=== PATIENT | female | born 1980 | race Caucasian/White ===

== ENCOUNTER 2017-10-23 09:59 | Emergency (ER) | payer SELFPAY ==
[~2017-10-23] VITALS: Ht 165.1 cm; Wt 59.0 kg
--- NOTE | 2017-10-23 10:20 | NUR ---
BIB SELF C/O DIZZINESS X1DAY, DENIES FALL, OR LOC, NAD NOTED, VSS, RESP EVEN AND UNLABORED, WAITING FOR MD FRED.
[2017-10-23] MEDS ORDERED: ACETAMINOPHEN ES 500 MG TABLET ONE (10:26)
[2017-10-23] MEDS ORDERED: IBUPROFEN 400 MG TABLET ONE (10:50)
[2017-10-23] MEDS ORDERED: ACETAMINOPHEN ES 500 MG TABLET PO ONE (11:00)
[2017-10-23] MEDS ORDERED: IBUPROFEN 400 MG TABLET PO ONE (11:00)
[2017-10-23 11:08] VITALS: BP 110/70
--- NOTE | 2017-10-23 11:09 | NUR ---
Patient discharged to home in stable condition. Written and verbal after care instructions given. Patient verbalizes understanding of instruction.
== END 2017-10-23 11:09 | disposition home or self-care (01) ==
LOC: ER 10:00
DX: F15.10 Other stimulant abuse, uncomplicated (principal); L03.114 Cellulitis of left upper limb; F17.200 Nicotine dependence, unspecified, uncomplicated; Z59.0 Homelessness
CPT/HCPCS: 99283; A4606; Z7610

== ENCOUNTER 2018-12-03 18:19 | Inpatient (IN) | payer OTHER ==
[~2018-12-03] VITALS: Ht 165.1 cm; Wt 67.6 kg
--- NOTE | 2018-12-03 21:22 | NUR ---
C/O WORSENING R LEG PAIN AND SWELLING SINCE NOV 07, 2018. STATES PAIN LEVEL OF 7/10 AND IS MOANING AND CRYING OUT. PT IS AOX4, SLIGHTLY TACHYCARDIC, RR EVEN AND UNLABORED. SKIN WARM TO TOUCH, DRY, INTACT. DENIES SOB, DIZZINESS, WEAKNESS. READY FOR EVAL.
[2018-12-03] MEDS ORDERED: ONDANSETRON HCL/PF 4 MG/2 ML VIAL ONE ×2 (21:46→22:30)
[2018-12-03] MEDS ORDERED: oxyCODONE/APAP (5/325 MG) 1 UDTAB TABLET ONE (21:55)
[2018-12-03] MEDS ORDERED: ONDANSETRON HCL/PF 4 MG/2 ML VIAL IVP ONE (22:00)
[2018-12-03] MEDS ORDERED: oxyCODONE/APAP (5/325 MG) 1 UDTAB TABLET PO ONE (22:00)
[2018-12-03] MEDS ORDERED: MORPHINE SULFATE INJ 2 MG/ML DISP.SYRIN IV ONE (22:00)
[2018-12-03] MEDS ORDERED: IV NS 0.9% 1,000 ML BAG IV ONE ×2 (22:00→23:30)
--- NOTE | 2018-12-03 22:24 | NUR ---
REMANUFACTURING TECHNICIAN AT BEDSIDE
[2018-12-03 22:27] LABS: BASOPHILS # (AUTO) 0.1 /CMM (0.0-0.2); BASOPHILS % (AUTO) 0.3 % (0.0-2.0); EOSINOPHILS % (AUTO) 0.3 % (0.0-6.0); HEMATOCRIT 25 % (33-45); HEMOGLOBIN 8.1 g/dL (11.5-14.8); LYMPHOCYTES # (AUTO) 1.2 /CMM (0.8-4.8); LYMPHOCYTES % (AUTO) 6.7 % (20.0-44.0); MEAN CORPUSCULAR HGB CONC 33 g/dl (31.0-36.0); MEAN CORPUSCULAR VOLUME 85 fL (82-100); MONOCYTES # (AUTO) 0.6 /CMM (0.1-1.30); MONOCYTES % (AUTO) 3.3 % (2.0-12.0); NEUTROPHILS # (AUTO) 15.6 /CMM (1.8-8.9); NEUTROPHILS % (AUTO) 89.4 % (43.0-81.0); PLATELET COUNT (AUTO) 726 /CMM (150-450); RED BLOOD CELL COUNT(AUTO) 2.94 MIL/uL (4.0-5.2); WHITE BLOOD COUNT (AUTO) 17.4 K/uL (4.3-11.0)
[2018-12-03] MEDS ORDERED: HYDROMORPHONE INJ 2 MG/ML DISP.SYRIN ONE (22:30)
[2018-12-03] MEDS ORDERED: HYDROMORPHONE INJ 2 MG/ML DISP.SYRIN IM ONE (22:30)
[2018-12-03] MEDS ORDERED: ONDANSETRON HCL/PF 4 MG/2 ML VIAL IM ONE (22:30)
[2018-12-03 22:42] LABS: CALCIUM, SERUM 8.9 mg/dL (8.5-10.1); CREATININE 3.1 mg/dL (0.6-1.3); POTASSIUM 4.7 mmol/L (3.5-5.1)
[2018-12-03 23:08] LABS: ALANINE AMINOTRANSFERASE 17 U/L (12-78); ALBUMIN 1.6 g/dL (3.4-5.0); ALKALINE PHOSPHATASE 122 U/L (46-116); ASPARTATE AMINOTRANSFERASE 20 U/L (15-37); BILIRUBIN,DIRECT 0.3 mg/dL (0.0-0.2); BILIRUBIN,TOTAL 0.5 mg/dL (0.2-1.0); TOTAL PROTEIN, SERUM 8.9 g/dL (6.4-8.2)
--- NOTE | 2018-12-03 23:08 | NUR ---
ANTIQUE FINISHER AT BEDSIDE
--- NOTE | 2018-12-03 23:12 | NUR ---
BOYFRIEND AT BEDSIDE
[2018-12-03] MEDS ORDERED: PIPERACILLIN /TAZOBACTAM 3.375 G in IV D5W 50 ML IV ONE (23:30)
[2018-12-03] MEDS ORDERED: VANCOMYCIN 1 GM in IV D5W 250 ML IV ONE (23:30)
--- NOTE | 2018-12-03 23:37 | NUR ---
URINE OBTAINED AND SENT TO LAB. REPORT GIVEN TO MARILOU BISHOP FOR RIAZ.
[2018-12-03 23:44] LABS: APPEARANCE,URINE Cloudy (CLEAR); BILIRUBIN,URINE MODERATE (NEGATIVE); BLOOD, URINE Trace-lysed Ery/uL (NEGATIVE); COLOR,URINE Dark (YELLOW); KETONES,URINE Trace (NEGATIVE); LEUKOCYTE ESTERASE ,URINE Large (NEGATIVE); NITRITE, URINE Negative (NEGATIVE); PROTEIN,URINE 100 mg/dl (NEGATIVE); UGLUCOSE Negative (NEGATIVE)
[2018-12-03] MEDS ORDERED: VANCOMYCIN 1 GM VIAL ONE (23:58)
[2018-12-03] MEDS ORDERED: PIPERACILLIN /TAZOBACTAM 3.375 G VIAL IV ONE (23:58)
[2018-12-04] VITALS (7 sets, daily range): BP systolic 96–107; BP diastolic 36–50
[2018-12-04 00:03] LABS: SQUAMOUS EPITHELIAL CELL,UR Moderate /HPF (None Seen); WBC,URINE TOO NUMEROUS TO COUN /HPF (0-3)
[2018-12-04 00:04] LABS: BACTERIA,URINE Many /HPF (None Seen)
[2018-12-04] MEDS ORDERED: MAGNESIUM HYDROXIDE 30 ML UDC PO PRN (00:30)
[2018-12-04] MEDS ORDERED: ONDANSETRON HCL/PF 4 MG/2 ML VIAL IVP PRN (00:30)
[2018-12-04] MEDS ORDERED: MAG HYDROX/AL HYDROX/SIMETH 30 ML UDC PO PRN (00:30)
[2018-12-04] MEDS ORDERED: Z GUARD REMEDY 2 OZ OINT TP PRN (00:30)
--- NOTE | 2018-12-04 01:30 | NUR ---
REPORT GIVEN TO YOHANA ZAMARRIPA
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
[2018-12-04] MEDS ORDERED: RIVA10TA PO (02:30)
[2018-12-04] MEDS ORDERED: IBUP-1955 PO (02:35)
[2018-12-04] MEDS: IV NS 0.9% 1,000 ML IV PRN ×2 (04:00→23:43)
--- NOTE | 2018-12-04 06:41 | NUR ---
307-1 TELE/RN NOTES PATIENT SLEPT INTERMITENT;Y, ON TELE READING ST 105, ALERT, ORIENTED X3, VERBALZIED NEEDS AT ALL TIMES, MONITORED FOR PAIN AND RELIEF. CALL LIGHTS WITHIN REACH, BED LOCKED WILL ENDORSE TO AM RN FOR RIAZ. RESPIRATIONS EVEN AND UNLABORED.
[2018-12-04] MEDS ORDERED: FEE PK DOSING 1 MIN EA MC ONE (07:05)
--- NOTE | 2018-12-04 07:45 | NUR ---
MEDICAL STAFF SERVICES COORDINATOR OPENING NOTE PATIENT RESTING COMFORTABLY AT THIS TIME. NO FACIAL GRIMACING NOTED FOR PAIN. NO SOB OR DISTRESS NOTED ON ROOM AIR TOLERATING WELL. IV ON RIGHT HAND INTACT AND PATENT NO REDNESS OR SWELLING NOTED ON IV FLUIDS AT THIS TIME. ABLE TO COMMUNICATE NEEDS. CALL LIGHT WITHIN REACH. WILL CONTINUE CARE
[2018-12-04] MEDS: PIPERACILLIN /TAZOBACTAM 2.25 G in IV D5W 50 ML IV SCH ×4 (08:47→23:39)
--- NOTE | 2018-12-04 10:45 | NUR ---
SPINE SPECIALIST NOTE AT THIS TIME PATIENT REFUSING FOR SECONDARY IV LINE FOR ANTIBIOTIC ADMINISTRATIN. INFORMED [facility]
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
--- NOTE | 2018-12-04 13:00 | NUR ---
TAX ASSESSOR NOTE NOTICED PATIENT WAS VERY DROWSY, INFORMED MD THAT PATIENT HAS BEEN LIKE THAT ALL MORNING. SEARCHED PATIENT'S BELONGINGS AT BEDSIDE THOROUGHLY AND FOUND 2 PIPES, A SMALL BAG OF UNKNOWN SUBSTANCE, TWO INSULIN SYRINGES, AND TWO PEN-LIKE TUBES. ALL CONTRABAND HAS BEEN CONFISCATED FROM PATIENT AND PLACED IN [facility]. INFORMED CHARGE NURSE IN REGARDS TO CONTRABAND.
[2018-12-04 14:39] LABS: BASOPHILS % (AUTO) 0.1 % (0.0-2.0); EOSINOPHILS % (AUTO) 0.2 % (0.0-6.0); HEMATOCRIT 24 % (33-45); HEMOGLOBIN 7.4 g/dL (11.5-14.8); LYMPHOCYTES # (AUTO) 0.4 /CMM (0.8-4.8); LYMPHOCYTES % (AUTO) 2.3 % (20.0-44.0); MEAN CORPUSCULAR HGB CONC 31 g/dl (31.0-36.0); MEAN CORPUSCULAR VOLUME 85 fL (82-100); MONOCYTES # (AUTO) 0.4 /CMM (0.1-1.30); MONOCYTES % (AUTO) 2.2 % (2.0-12.0); NEUTROPHILS # (AUTO) 16.9 /CMM (1.8-8.9); NEUTROPHILS % (AUTO) 95.2 % (43.0-81.0); PLATELET COUNT (AUTO) 664 /CMM (150-450); RED BLOOD CELL COUNT(AUTO) 2.75 MIL/uL (4.0-5.2); WHITE BLOOD COUNT (AUTO) 17.7 K/uL (4.3-11.0)
[2018-12-04 14:43] LABS: CALCIUM, SERUM 8.3 mg/dL (8.5-10.1)
[2018-12-04 15:20] LABS: BAND % (MANUAL) 10 % (0.0-5.0); LYMPHOCYTES % (MANUAL) 10 % (16-48); MONOCYTES % (MANUAL) 4 % (0-11.0); NEUTROPHILS % (MANUAL) 76 (42-76)
[2018-12-04] MEDS ORDERED: IV NS 0.9% 1,000 ML IV PRN (16:30)
--- NOTE | 2018-12-04 18:08 | NUR ---
Patient states she has been homeless since March 2017. Prior to being homeless, she had an apartment in [place]. She also had a baby who is adopted by Mercy Stewart, who is also her emergency contact. States she is originally from [place], [place] and moved to [facility] in June 2016. Patient states her family are in [place] and are aware of pt's hospitalization. She has a boyfriend named Juan. Pt. denies current drug use and states she last used in October prior to being hospitalized at [facility]. She receives food stamps worth $200 per month. SW asked patient if she would like [facility] program placement and resources. Patient stated, " [facility] the [facility] before and they are scary." SW to meet with her again prior to discharge and once medically cleared to discuss resources and referrals. Addendum: 12/04/18 at 1809 by HUGO LUNDBERG RN Amended: Links added.
--- NOTE | 2018-12-04 18:39 | NUR ---
DESK REPORTER CLOSING NOTE PATIENT IN BED AT THIS TIME YELLING, WHEN ASKING PATIENT IF THERE IS SOMETHING WRONG PATIENT REPLIES " NO IM OKAY" AND CONTINUES TO YELL AND SCREAM. CALL LIGHT WITHIN REACH AT ALL TIMES. SAFETY MEASURES IMPLEMENTED. ALL DUE MEDICATIONS GIVEN ORDERED. ALL NEEDS MET. URINE TO BE COLLECTED FOR TEST. NO FACIAL GRIMACING NOTED FOR PAIN. NO SOB OR DISTRESS NOTED ON ROOM AIR. WILL ENDORSE TO CERTIFIED MASTER SAFECRACKER NURSE FOR RIAZ Addendum: 12/04/18 at 1848 by KAROLYN MCCANN RN TELE [id number]. AWARE
--- NOTE | 2018-12-04 19:30 | NUR ---
RECEIVED PATIENT IN BED ASLEEP, EASILY AROUSABLE. AO X 3, ABLE TO MAKE NEEDS KNOWN; CRIES ON AND OFF; REASSURANCE GIVEN. NO ACUTE DISTRESS NOTED. DENIES ANY PAIN AT THIS TIME. SINUS TACH HR 135. IV SITE PATENT, INTACT; IVF INFUSING ORDERED. ON LOW BED WITH BILATERAL UPPER SIDE RAILS UP. CALL [place] WITHIN EASY REACH. WILL CONTINUE TO MONITOR.
[2018-12-04] MEDS: ACETAMINOPHEN 325 MG TABLET PO PRN (20:15)
--- NOTE | 2018-12-04 20:15 | NUR ---
TEMP 103.2 RELAYED TO [facility]. BLOOD CULTURE X 2 ALREADY DONE. ON ZOSYN. [facility] SP[facility] ORDERED TO GIVE ORDERED NS BOLUS; FOLLOW UP ON VANCO IV; ADMINISTER TYLENOL; NOTED AND CARRIED OUT. COOLING MEASURES ALSO GIVEN. WILL CONTINUE TO MONITOR.
[2018-12-04] MEDS ORDERED: ENOXAPARIN SODIUM 40 MG/0.4 ML DISP.SYRIN SQ ONE (22:00)
[2018-12-05] VITALS (11 sets, daily range): BP systolic 98–112; BP diastolic 51–60
[2018-12-05] MEDS ORDERED: VANCOMYCIN 0.75 GM in IV D5W 250 ML IV SCH ×2
--- NOTE | 2018-12-05 06:00 | NUR ---
PATIENT ASLEEP, EASILY AROUSABLE. RESPIRATONS EVEN. NO SIGNS OF PAIN NOTED. DUE MEDS GIVEN WITH NO ASE NOTED. IVF INFUSING ORDERED. NO SIGNS OF BLEEDING NOTED. NEEDS ATTENDED. ENCOURAGED TO TURN AND REPOSITION Q 2 HOURS. KEPT CLEAN, DRY, AND COMFORTABLE. SAFETY PRECAUTIONS AND COMFORT MEASURES IN PLACE. WILL GIVE REPORT TO DAY SHIFT FOR CONTINUITY OF CARE.
[2018-12-05] MEDS: PIPERACILLIN /TAZOBACTAM 2.25 G in IV D5W 50 ML IV SCH (06:15)
[2018-12-05 06:34] LABS: BASOPHILS % (AUTO) 0.1 % (0.0-2.0); EOSINOPHILS % (AUTO) 0.1 % (0.0-6.0); HEMATOCRIT 21 % (33-45); LYMPHOCYTES # (AUTO) 0.8 /CMM (0.8-4.8); MEAN CORPUSCULAR HGB CONC 32 g/dl (31.0-36.0); MEAN CORPUSCULAR VOLUME 85 fL (82-100); MONOCYTES # (AUTO) 0.7 /CMM (0.1-1.30); MONOCYTES % (AUTO) 3.9 % (2.0-12.0); NEUTROPHILS # (AUTO) 15.4 /CMM (1.8-8.9); NEUTROPHILS % (AUTO) 90.9 % (43.0-81.0); PLATELET COUNT (AUTO) 621 /CMM (150-450); RED BLOOD CELL COUNT(AUTO) 2.42 MIL/uL (4.0-5.2); WHITE BLOOD COUNT (AUTO) 16.9 K/uL (4.3-11.0)
[2018-12-05 06:55] LABS: HEMOGLOBIN 6.5 g/dL (11.5-14.8)
--- NOTE | 2018-12-05 06:55 | NUR ---
PROVIDER CELLOPHANE BATH MIXER PAGED FOR CRITICAL LAB REPORT; WAITING FOR CALL BACK. MAY ENDORSE TO DAY SHIFT.
[2018-12-05 06:58] LABS: CALCIUM, SERUM 8.1 mg/dL (8.5-10.1); CARBON DIOXIDE 21 mmol/L (21-32); CHLORIDE 104 mmol/L (98-107); CREATININE 1.1 mg/dL (0.6-1.3); GLUCOSE 117 mg/dL (74-106); PHOSPHORUS 4.9 mg/dL (2.5-4.9); POTASSIUM 3.1 mmol/L (3.5-5.1); SODIUM SERUM 135 mmol/L (136-145); UREA NITROGEN, BLOOD 39 mg/dL (7-18)
[2018-12-05 07:04] LABS: CHOLESTEROL 53 mg/dL (<200); LDL 41 mg/dL (0-99); THYROID STIMULATING HORMONE 0.695 uIU/mL (0.358-3.74); TRIGLYCERIDES 95 mg/dL (30-150)
[2018-12-05 07:14] LABS: HDL CHOLESTEROL < 10 mg/dL (40-60)
--- NOTE | 2018-12-05 08:00 | NUR ---
RN NOTES PATIENT IN BED RESTING NO SOB OR ACUTE DISTRESS NOTED. PATIENT ALERT, ORIENTED X3 APPEARS WEAK. DR. PIRES MADE AWARE OF THE H/H: .04/07 ORDERS TO REPEAT CBC AND TYPE AND SCREEN ORDERS NOTED AND CARRIED OUT.
[2018-12-05 08:48] LABS: LYMPHOCYTES % (MANUAL) 6 % (16-48); MONOCYTES % (MANUAL) 7 % (0-11.0); NEUTROPHILS % (MANUAL) 87 (42-76)
--- NOTE | 2018-12-05 09:00 | NUR ---
RN NOTES STANDING ORDERS TO GIVE 1 UNIT OF RBC IF HGB BELOW 7.0 NOTED AND CARRIED.
[2018-12-05] MEDS: ACETAMINOPHEN 325 MG TABLET PO PRN (10:01)
[2018-12-05] MEDS ORDERED: POTASSIUM CHLORIDE 20 MEQ TAB.PRT.SR PO ONE (11:00)
[2018-12-05 11:12] LABS: BASOPHILS % (AUTO) 0.2 % (0.0-2.0); EOSINOPHILS % (AUTO) 0.2 % (0.0-6.0); LYMPHOCYTES # (AUTO) 0.9 /CMM (0.8-4.8); LYMPHOCYTES % (AUTO) 5.7 % (20.0-44.0); MEAN CORPUSCULAR HGB CONC 33 g/dl (31.0-36.0); MEAN CORPUSCULAR VOLUME 84 fL (82-100); MONOCYTES # (AUTO) 0.7 /CMM (0.1-1.30); NEUTROPHILS # (AUTO) 15.1 /CMM (1.8-8.9); NEUTROPHILS % (AUTO) 89.9 % (43.0-81.0); PLATELET COUNT (AUTO) 616 /CMM (150-450); RED BLOOD CELL COUNT(AUTO) 2.32 MIL/uL (4.0-5.2); WHITE BLOOD COUNT (AUTO) 16.8 K/uL (4.3-11.0)
--- NOTE | 2018-12-05 11:23 | NUR ---
WOUND CARE CONSULT: PT PRESENTS WITH RT HEEL INTACT DEEP TISSUE INJURY AND SACRAL STAGE 2 ULCER, PRESENT ON ADMISSION. RECOMMENDATIONS MADE FOR SKIN PROTECTION AND WOUND CARE. DISCUSSED WITH NURSING STAFF. WILL SEE PRN. ISOFLEX LOW AIRLOSS BED TO BE PLACED. WILL SEE PRN. IN AGREEMENT WITH PLAN OF CARE . Addendum: 12/05/18 at 1125 by KATARINA CORNELIUS WNDNU Amended: Links added.
[2018-12-05 11:25] LABS: HEMATOCRIT 20 % (33-45); HEMOGLOBIN 6.4 g/dL (11.5-14.8)
[2018-12-05] MEDS ORDERED: HYDROGEL DRESSING 90 GM TUBE TP PRN (11:30)
[2018-12-05] MEDS: PIPERACILLIN /TAZOBACTAM 3.375 G in IV D5W 50 ML IV SCH ×2 (12:15→19:18)
[2018-12-05 12:18] LABS: LYMPHOCYTES % (MANUAL) 7 % (16-48); MONOCYTES % (MANUAL) 1 % (0-11.0); NEUTROPHILS % (MANUAL) 92 (42-76)
[2018-12-05] MEDS ORDERED: K PHOS NEUTRAL 250 MG TABLET PO ONE (12:30)
[2018-12-05] MEDS: VANCOMYCIN 0.75 GM in IV D5W 250 ML IV SCH (13:21)
[2018-12-05] MEDS: HYDROGEL DRESSING 90 GM TUBE TP SCH (13:21)
--- NOTE | 2018-12-05 16:34 | NUR ---
RN NOTES PATIENT STARTED ON BLOOD TRANSFUSION IN STABLE CONDITION TOLERATING WELL WILL CONTINUE TO MONITOR.
[2018-12-05] MEDS: LACTOBACILLUS RHAMNOSUS GG 1 EACH CAP.SPRINK PO SCH (17:36)
--- NOTE | 2018-12-05 18:32 | NUR ---
RN NOTES PATIENT IN BED RESTING ALERT, ORIENTED X3 NO SOB OR ACUTE DISTRESS NOTED. PATIENT ALERT, ORIENTED X3. PERIPHERAL IV ON RIGHT FOREARM INTACT PATENT. PATIENT CURRENTLY RECEIVING BLOOD TRANSFUSION TOLERATING WELL NO REACTION NOTED. NO ACUTE CHANGES NOTED. WILL ENDORSE TO PM SHIFT RIAZ.
[2018-12-05] MEDS: IV NS 0.9% 1,000 ML IV PRN (19:18)
--- NOTE | 2018-12-05 19:30 | NUR ---
RN OPENING NOTES PT RECEIVED WITH ONGOING BLOOD TRANSFUSION. LETHARGIC BUT OPENS EYES TO NAME. ON ROOM AIR, BREATHING EVEN AND UNLABORED. ON TELE OBSERVATION SHOWING SR 94. IV TO RFA PATENT AND INTACT. IN NO ACUTE DISTRESS. NO S/S OF SOB OR PAIN AT THIS TIME. BED IN LOW/LOCKED POSITION WITH CALL LIGHT IN REACH, SIDE RAILS UP X2. BLUE ELEVATED. WILL CONTINUE TO MONITOR CLOSELY
[2018-12-05] MEDS: ENOXAPARIN SODIUM 40 MG/0.4 ML DISP.SYRIN SQ SCH (21:08)
[2018-12-06] VITALS (7 sets, daily range): BP systolic 96–107; BP diastolic 55–65
[2018-12-06] MEDS: PIPERACILLIN /TAZOBACTAM 3.375 G in IV D5W 50 ML IV SCH ×3 (00:19→11:00)
[2018-12-06] MEDS: ACETAMINOPHEN 325 MG TABLET PO PRN ×2 (00:24→17:38)
--- NOTE | 2018-12-06 00:39 | NUR ---
TELE/RN NOTES PT C/O RLE PAIN, BP 96/61, HR 86. ADMINISTERED PRN TYLENOL FOR NOW. WITH POOR PO INTAKE, BUT ABLE TO ENCOURAGE 2 CUPS OF JELLO AND 1 APPLE JUICE. TOLERATED WELL.
[2018-12-06] MEDS: VANCOMYCIN 0.75 GM in IV D5W 250 ML IV SCH ×2 (00:58→12:34)
--- NOTE | 2018-12-06 04:44 | NUR ---
RN NOTES PT REFUSED TURNING/REPOSITIONING THROUGHOUT SHIFT DESPITE MULTIPLE ATTEMPTS TO ASSIST WITH TURNING AND EDUCATION OF RISKS/BENEFITS. STATES THE PILLOW "IS TOO UNCOMFORTABLE" AND BEGINS TO MOAN AND CRY. ABLE TO APPLY MEPILEX FOR PROTECTION. VERBALIZES UNDERSTANDING OF SACRAL WOUND AND POTENTIAL TO GET WORSE IF PT DOES NOT TURN Q2H. STILL REFUSING
[2018-12-06 06:38] LABS: BASOPHILS % (AUTO) 0.2 % (0.0-2.0); EOSINOPHILS % (AUTO) 0.5 % (0.0-6.0); HEMATOCRIT 22 % (33-45); HEMOGLOBIN 7.5 g/dL (11.5-14.8); LYMPHOCYTES # (AUTO) 1.4 /CMM (0.8-4.8); LYMPHOCYTES % (AUTO) 10.9 % (20.0-44.0); MEAN CORPUSCULAR HGB CONC 34 g/dl (31.0-36.0); MEAN CORPUSCULAR VOLUME 85 fL (82-100); MONOCYTES # (AUTO) 0.6 /CMM (0.1-1.30); MONOCYTES % (AUTO) 4.7 % (2.0-12.0); NEUTROPHILS # (AUTO) 10.8 /CMM (1.8-8.9); NEUTROPHILS % (AUTO) 83.7 % (43.0-81.0); PLATELET COUNT (AUTO) 578 /CMM (150-450); RED BLOOD CELL COUNT(AUTO) 2.65 MIL/uL (4.0-5.2)
--- NOTE | 2018-12-06 06:38 | NUR ---
RN CLOSING NOTES PT ASLEEP, OPENS EYES TO NAME. A/OX3. ON ROOM AIR, BREATHING EVEN AND UNLABORED. DENIES SOB, NO C/O PAIN AT THIS TIME. LUE AND RLE ELEVATED ON PILLOWS AT ALL TIMES. PT AGREED TO REPOSITION X1 DURING SHIFT. MEPILEX MAINTAINED ON SACRUM. IV TO RIGHT HAND AND RFA PATENT AND INTACT RUNNING IVF ORDERED. ENCOURAGED PO INTAKE TOLERATED. ASPIRATION PRECAUTIONS IMPLEMENTED. HOB ELEVATED. BED REMAINS IN LOW/LOCKED POSITION WITH CALL LIGHT IN REACH AND UPPER SIDE RAILS IN PLACE. KEPT COMFORTABLE DURING SHIFT AND ALL NEEDS MET. WILL ENDORSE TO DAY SHIFT RN RIAZ. Addendum: 12/06/18 at 0643 by INDER RICHARDS RN REMAINS ON TELE MONITOR SHOWING [id number]
[2018-12-06 06:47] LABS: CALCIUM, SERUM 8.3 mg/dL (8.5-10.1); CREATININE 0.7 mg/dL (0.6-1.3); POTASSIUM 3.6 mmol/L (3.5-5.1)
--- NOTE | 2018-12-06 07:23 | NUR ---
SUPERVISOR LANDSCAPE OPENING NOTES PT WAS RECEIVED IN BED AT LOWEST AND LOCKED POSITION WITH SIDE RAILS UP X2, A/O X3, NO S/S OF PAIN OR DISTRESS NOTED, BREATHING EVEN AND UNLABORED ON RA, PT IS ON BED REST, IV SITE IS PATENT AND INTACT, SAFETY PRECAUTIONS IN PLACE, CALL LIGHT WITHIN REACH, WILL MONITOR ACCORDINGLY.
[2018-12-06] MEDS: LACTOBACILLUS RHAMNOSUS GG 1 EACH CAP.SPRINK PO SCH ×2 (08:45→16:21)
[2018-12-06] MEDS: HYDROGEL DRESSING 90 GM TUBE TP SCH (08:47)
[2018-12-06 08:57] LABS: BAND % (MANUAL) 6 % (0.0-5.0); EOSINOPHILS % (MANUAL) 1 % (0-4); LYMPHOCYTES % (MANUAL) 8 % (16-48); MONOCYTES % (MANUAL) 2 % (0-11.0); MYELOCYTES % 1 % (0-0); NEUTROPHILS % (MANUAL) 82 (42-76)
[2018-12-06] MEDS: HYDROCODONE/APAP 10/325MG 1 EA TABLET PO PRN ×2 (12:41→20:24)
--- NOTE | 2018-12-06 12:41 | NUR ---
RN NOTES NORCO 10/325 GIVEN AT THIS TIME DUE TO PATIENT COMPLAINING OF PAIN 8 OUT 10, WILL MONITOR ACCORDINGLY
[2018-12-06] MEDS: IV NS 0.9% 1,000 ML IV PRN (12:44)
[2018-12-06] MEDS: CEFTRIAXONE 1 G in IV D5W 50 ML IV SCH (14:09)
--- NOTE | 2018-12-06 17:36 | NUR ---
RN NOTES PT COMPLAINED OF RLE PAIN, BP NOTED TO BE 102/61, HR 99. WILL ADMINISTER PRN TYLENOL FOR NOW INSTEAD OF NORCO.
--- NOTE | 2018-12-06 18:29 | NUR ---
MS RN CLOSING NOTES PT IN BED AT LOWEST AND LOCKED POSITION WITH SIDE RAILS UP X2, A/O X3, RESTING COMFORTABLY IN BED, BREATHING EVEN AND UNLABORED ON RA, PT IS ON BED REST, IV SITE IS PATENT AND INTACT, SAFETY PRECAUTIONS IN PLACE, CALL LIGHT WITHIN REACH, ALL NEEDS ATTENDED TO, WILL ENDORSE TO NIGHT RN FOR RIAZ.
--- NOTE | 2018-12-06 20:00 | NUR ---
MS RN NOTES RECEIVED PATIENT AWAKE IN BED WITH NO DISTRESS NOTED. CALL LIGHT WITHIN REACH. PERIPHERAL LINE INTACT AND PATENT. NO C/O PAIN OR DISCOMFORT. BED IN LOW LOCK SETTING. ALL BELONGINGS KEPT NEAR BEDSIDE. WILL CONTINUE TO MONITOR.
[2018-12-06] MEDS: ENOXAPARIN SODIUM 40 MG/0.4 ML DISP.SYRIN SQ SCH (21:15)
[2018-12-07] MEDS: VANCOMYCIN 1 GM in IV D5W 250 ML IV SCH ×3 (00:03→23:29)
[2018-12-07] MEDS: HYDROCODONE/APAP 10/325MG 1 EA TABLET PO PRN ×4 (03:00→23:29)
[2018-12-07] MEDS: IV NS 0.9% 1,000 ML IV PRN ×2 (05:44→23:36)
--- NOTE | 2018-12-07 06:03 | NUR ---
MS RN CLOSING NOTES PATIENT ASLEEP IN BED WITH NO DISTRESS NOTED. CALL LIGHT WITHIN REACH. PERIPHERAL LINE INTACT AND PATENT. ALL DUE MEDS GIVEN ORDERED WITH NO ASE NOTED. BLE ELEVATED VIA PILLOWS. NO FURTHER C/O PAIN OR DISCOMFORT. BED IN LOW LOCK SETTING. ALL BELONGINGS KEPT NEAR BEDSIDE. WILL ENDORSE TO ONCOMING SHIFT.
[2018-12-07 06:12] LABS: BASOPHILS # (AUTO) 0.1 /CMM (0.0-0.2); BASOPHILS % (AUTO) 0.5 % (0.0-2.0); EOSINOPHILS % (AUTO) 0.9 % (0.0-6.0); HEMATOCRIT 25 % (33-45); HEMOGLOBIN 8.1 g/dL (11.5-14.8); LYMPHOCYTES # (AUTO) 1.6 /CMM (0.8-4.8); LYMPHOCYTES % (AUTO) 14.5 % (20.0-44.0); MEAN CORPUSCULAR HGB CONC 33 g/dl (31.0-36.0); MEAN CORPUSCULAR VOLUME 85 fL (82-100); MONOCYTES # (AUTO) 0.5 /CMM (0.1-1.30); MONOCYTES % (AUTO) 4.3 % (2.0-12.0); NEUTROPHILS # (AUTO) 8.6 /CMM (1.8-8.9); NEUTROPHILS % (AUTO) 79.8 % (43.0-81.0); PLATELET COUNT (AUTO) 595 /CMM (150-450); WHITE BLOOD COUNT (AUTO) 10.8 K/uL (4.3-11.0)
[2018-12-07 06:18] LABS: CALCIUM, SERUM 8.1 mg/dL (8.5-10.1); CREATININE 0.6 mg/dL (0.6-1.3)
[2018-12-07 06:23] LABS: POTASSIUM 3.5 mmol/L (3.5-5.1)
[2018-12-07 06:42] LABS: PHOSPHORUS 4.3 mg/dL (2.5-4.9)
--- NOTE | 2018-12-07 07:17 | NUR ---
PLACED CALL TO ROSALIE ARROYO ANSWERING SERVICE RE CRITICAL LAB: MAGNESIUM 1.0. PER ROSALIE ARROYO, HE WILL FORWARD LAB RESULT TO . DR PIRES TO CALL BACK WITH ORDERS. WILL ENDORSE TO ONCOMING SHIFT.
[2018-12-07 08:00] VITALS: BP 104/62
[2018-12-07] MEDS ORDERED: Magnesium 1GM/D5W 100ML PREMIX 100 ML IV SCH (08:30)
[2018-12-07] MEDS: LACTOBACILLUS RHAMNOSUS GG 1 EACH CAP.SPRINK PO SCH ×2 (09:51→18:00)
[2018-12-07] MEDS: Magnesium 1GM/D5W 100ML PREMIX 100 ML IV SCH ×6 (09:57→17:54)
[2018-12-07] MEDS: HYDROGEL DRESSING 90 GM TUBE TP SCH (11:12)
[2018-12-07] MEDS: CEFTRIAXONE 1 G in IV D5W 50 ML IV SCH (15:02)
[2018-12-07 16:00] VITALS: BP 108/68
[2018-12-07 20:00] VITALS: BP 106/65
--- NOTE | 2018-12-07 20:00 | NUR ---
MS RN NOTES RECEIVED PATIENT AWAKE IN BED AND WATCHING TV WITH NO DISTRESS NOTED. CALL LIGHT WITHIN REACH. NO C/O PAIN OR DISCOMFORT. PERIPHERAL LINE INTACT AND PATENT. BED IN LOW LOCK SETTING. ALL BELONGINGS KEPT NEAR BEDSIDE. WILL CONTINUE TO MONITOR.
[2018-12-07] MEDS: ENOXAPARIN SODIUM 40 MG/0.4 ML DISP.SYRIN SQ SCH (21:18)
[2018-12-08] MEDS: HYDROCODONE/APAP 10/325MG 1 EA TABLET PO PRN ×3 (05:25→16:40)
--- NOTE | 2018-12-08 06:13 | NUR ---
MS RN CLOSING NOTES PATIENT ASLEEP IN BED WITH NO DISTRESS NOTED. CALL LIGHT WITHIN REACH. ALL DUE MEDS GIVEN ORDERED WITH NO ASE NOTED. BLE ELEVATED VIA PILLOWS. PERIPHERAL LINE INTACT AND PATENT. NO FURTHER C/O PAIN OR DISCOMFORT. BED IN LOW LOCK SETTING. ALL BELONGINGS KEPT NEAR BEDSIDE. WILL ENDORSE TO ONCOMING SHIFT.
[2018-12-08 06:37] LABS: BASOPHILS % (AUTO) 0.3 % (0.0-2.0); EOSINOPHILS % (AUTO) 1.2 % (0.0-6.0); HEMATOCRIT 24 % (33-45); HEMOGLOBIN 8.1 g/dL (11.5-14.8); LYMPHOCYTES # (AUTO) 1.6 /CMM (0.8-4.8); LYMPHOCYTES % (AUTO) 17.9 % (20.0-44.0); MEAN CORPUSCULAR HGB CONC 33 g/dl (31.0-36.0); MEAN CORPUSCULAR VOLUME 85 fL (82-100); MONOCYTES # (AUTO) 0.4 /CMM (0.1-1.30); MONOCYTES % (AUTO) 4.4 % (2.0-12.0); NEUTROPHILS # (AUTO) 6.9 /CMM (1.8-8.9); NEUTROPHILS % (AUTO) 76.2 % (43.0-81.0); PLATELET COUNT (AUTO) 537 /CMM (150-450); RED BLOOD CELL COUNT(AUTO) 2.84 MIL/uL (4.0-5.2); WHITE BLOOD COUNT (AUTO) 9.1 K/uL (4.3-11.0)
[2018-12-08 06:47] LABS: CALCIUM, SERUM 7.5 mg/dL (8.5-10.1); CREATININE 0.5 mg/dL (0.6-1.3); MAGNESIUM 1.5 mg/dL (1.8-2.4); PHOSPHORUS 4.5 mg/dL (2.5-4.9); POTASSIUM 3.5 mmol/L (3.5-5.1)
--- NOTE | 2018-12-08 07:29 | NUR ---
RN OPENING NOTE PT IS IN BED AT LOWEST AND LOCKED POSITION WITH SIDE RAILS UP X2, A/O X4, BREATHING EVEN AND UNLABORED ON RA, NO S/S OF PAIN OR DISTRESS CURRENTLY NOTED, NORCO WAS RECENTLY GIVEN AT 0530, NOTED TO HAVE EDEMA, IV IS PATENT AND INTACT, SAFETY PRECAUTIONS IN PLACE, CALL LIGHT WITHIN REACH, WILL MONITOR ACCORDINGLY
[2018-12-08 08:00] VITALS: BP 112/70
[2018-12-08] MEDS: LACTOBACILLUS RHAMNOSUS GG 1 EACH CAP.SPRINK PO SCH ×2 (08:03→16:18)
[2018-12-08] MEDS: HYDROGEL DRESSING 90 GM TUBE TP SCH (08:05)
[2018-12-08] MEDS: Magnesium 1GM/D5W 100ML PREMIX 100 ML IV SCH ×3 (10:53→12:41)
[2018-12-08] MEDS: POLYETHYLENE GLYCOL 3350 17 GM POWD.PACK PO SCH (11:09)
[2018-12-08] MEDS: DOCUSATE SODIUM 100 MG CAPSULE PO SCH ×2 (11:09→16:18)
[2018-12-08] MEDS: THIAMINE HCL 100 MG TABLET PO SCH (11:09)
[2018-12-08] MEDS: FOLIC ACID 1 MG TABLET PO SCH (11:09)
[2018-12-08] MEDS: ENSURE ENLIVE CHOC 237 ML CAN PO SCH ×2 (11:09→16:18)
[2018-12-08] MEDS: MULTIVITAMINS,THERAGRAN 1 UDTAB TABLET PO SCH (11:09)
[2018-12-08] MEDS: VANCOMYCIN 1 GM in IV D5W 250 ML IV SCH ×2 (11:47→23:22)
[2018-12-08] MEDS: KETOROLAC TROMETHAMINE INJ 60 MG/2 ML VIAL IM SCH (12:42)
[2018-12-08] MEDS: CEFTRIAXONE 1 G in IV D5W 50 ML IV SCH (14:42)
[2018-12-08 15:30] VITALS: BP 101/65
--- NOTE | 2018-12-08 15:55 | NUR ---
RN NOTES ASPIRATION OF THE RIGHT KNEE WAS DONE, LAB CALLED BACK SAYING IT MAY NOT BE ENOUGH FLUID TO PERFORM ALL THE TEST. KUNAL LORENZO WAS CONTACTED AND SHE STATED THAT THEY SHOULD JUST DO ALL THE TEST THEY CAN WITH THAT AMOUNT
--- NOTE | 2018-12-08 18:40 | NUR ---
RN CLOSING NOTE PT IN BED AT LOWEST AND LOCKED POSITION WITH SIDE RAILS UP X2, A/O X4, BREATHING EVEN AND UNLABORED ON RA, NO S/S OF PAIN OF DISTRESS, IV IS PATENT AND INTACT, SAFETY PRECAUTIONS IN PLACE, CALL LIGHT WITHIN REACH, ALL NEEDS ATTENDED TO, WILL ENDORSE TO NIGHT RN FOR RIAZ.
--- NOTE | 2018-12-08 19:10 | NUR ---
RN OPENING NOTES PT AWAKE AND RESTING IN BED. BOYFRIEND AT BEDSIDE. NO COMPLAINTS OF PAIN, SOB OR DISTRESS AT THIS TIME. PT HAS RIGHT HAND #20, RIGHT FA #20 BOTH INTACT AND PATENT. PT HAD ASPIRATION OF RIGHT KNEE TODAY. SAFETY PRECAUTIONS IN PLACE, BED IN LOWEST LOCKED POSITION, X2 SIDE RAILS UP AND CALL LIGHT WITHIN REACH. WILL CONTINUE TO MONITOR.
[2018-12-08] MEDS: ENOXAPARIN SODIUM 40 MG/0.4 ML DISP.SYRIN SQ SCH (20:16)
[2018-12-08 20:34] VITALS: BP 108/70
[2018-12-09] MEDS: HYDROCODONE/APAP 10/325MG 1 EA TABLET PO PRN ×4 (00:21→23:01)
--- NOTE | 2018-12-09 06:34 | NUR ---
RN CLOSING NOTES PT RESTING IN BED. NO COMPLAINTS OF PAIN, SOB OR DISTRESS AT THIS TIME. PT HAS RIGHT HAND #20, RIGHT FA #20 BOTH INTACT AND PATENT. ALL PATIENT NEEDS MET OVERNIGHT. NORCO 10-325 GIVEN FOR PAIN MANAGEMENT. SAFETY PRECAUTIONS IN PLACE, BED IN LOWEST LOCKED POSITION, X2 SIDE RAILS UP AND CALL LIGHT WITHIN REACH. WILL ENDORSE TO DAY SHIFT NURSE FOR CONTINUITY OF CARE.
[2018-12-09 06:43] LABS: CALCIUM, SERUM 7.8 mg/dL (8.5-10.1); CREATININE 0.5 mg/dL (0.6-1.3); POTASSIUM 3.8 mmol/L (3.5-5.1)
--- NOTE | 2018-12-09 07:30 | NUR ---
MS shopper Pt Awake and resting in bed. Pt alert and oriented x4. No complaints of pain at this time. No s/s of SOB or distress at this time. When asked how the pt was doing, the pt started crying and stating "I don't want to be here, I just want to go home." RN consoled the pt and calmed her down. Awaiting synovial fluid culture. Pt currently on vanco and Rocephin. 2x side rails up with fall precautions maintained and call light within reach. Will continue to monitor.
[2018-12-09] MEDS: DOCUSATE SODIUM 100 MG CAPSULE PO SCH ×2 (08:16→16:30)
[2018-12-09] MEDS: THIAMINE HCL 100 MG TABLET PO SCH (08:16)
[2018-12-09] MEDS: FOLIC ACID 1 MG TABLET PO SCH (08:16)
[2018-12-09] MEDS: MULTIVITAMINS,THERAGRAN 1 UDTAB TABLET PO SCH (08:16)
[2018-12-09] MEDS: LACTOBACILLUS RHAMNOSUS GG 1 EACH CAP.SPRINK PO SCH ×2 (08:16→16:24)
[2018-12-09] MEDS: POLYETHYLENE GLYCOL 3350 17 GM POWD.PACK PO SCH (08:16)
[2018-12-09] MEDS: ENSURE ENLIVE CHOC 237 ML CAN PO SCH ×2 (08:17→17:39)
[2018-12-09] MEDS: KETOROLAC TROMETHAMINE INJ 60 MG/2 ML VIAL IM SCH (08:17)
[2018-12-09] MEDS: HYDROGEL DRESSING 90 GM TUBE TP SCH (08:18)
[2018-12-09 09:04] VITALS: BP 114/72
[2018-12-09] MEDS: VANCOMYCIN 1 GM in IV D5W 250 ML IV SCH (12:45)
[2018-12-09] MEDS: CEFTRIAXONE 1 G in IV D5W 50 ML IV SCH (14:28)
--- NOTE | 2018-12-09 15:15 | NUR ---
SW followed up with pt. bedside to discuss discharge plan. Pt. started crying, stating, " I don't want to be here." SW provided emotional support to the pt. and encouraged her to stay positive. SW inquired with pt. about her discharge plan once she is medically cleared to leave the hospital. Pt. states she will be staying with her boyfriend Rupesh at his sister's house. Pt. did not have the address but will get it for the SW from her boyfriend. SW to revisit with pt. prior to discharge to offer referrals and resources if needed.
[2018-12-09 15:59] VITALS: BP 115/71
--- NOTE | 2018-12-09 18:10 | NUR ---
MS RN Closing Notes PT aox4 while resting in bed. No s/s of SOB or distress at this time. PT has right hand #20, right FA #20 and both are intact and patent. NORCO 10-325 given for pain management. Pt refused treatment on sacral area. Safety precautions in place with bed in lowest lock position and x2 side rails up. Call light within reach. Will endorse to night nurse.
--- NOTE | 2018-12-09 19:40 | NUR ---
RN NOTES RECEIVED PATIENT AWAKE AND RESTING IN BED. BOYFRIEND AND ANOTHER FRIEND AT BEDSIDE. NO COMPLAINTS OF PAIN, SOB OR DISTRESS AT THIS TIME. PATIENT HAS RIGHT HAND #20, RIGHT FA #20 BOTH INTACT AND PATENT. ALL SAFETY PRECAUTIONS IN PLACE, BED IN LOWEST LOCKED POSITION, X2 SIDE RAILS UP AND CALL LIGHT WITHIN REACH. WILL CONTINUE TO MONITOR ACCORDINGLY.
[2018-12-09 20:02] VITALS: BP 124/76
[2018-12-09] MEDS: ENOXAPARIN SODIUM 40 MG/0.4 ML DISP.SYRIN SQ SCH (21:20)
[2018-12-10] MEDS: VANCOMYCIN 1 GM in IV D5W 250 ML IV SCH ×2 (00:16→11:45)
[2018-12-10 07:02] LABS: BASOPHILS % (AUTO) 0.4 % (0.0-2.0); EOSINOPHILS % (AUTO) 1.5 % (0.0-6.0); HEMATOCRIT 24 % (33-45); HEMOGLOBIN 7.7 g/dL (11.5-14.8); LYMPHOCYTES # (AUTO) 1.8 /CMM (0.8-4.8); LYMPHOCYTES % (AUTO) 17.2 % (20.0-44.0); MEAN CORPUSCULAR HGB CONC 33 g/dl (31.0-36.0); MEAN CORPUSCULAR VOLUME 86 fL (82-100); MONOCYTES # (AUTO) 0.3 /CMM (0.1-1.30); MONOCYTES % (AUTO) 2.8 % (2.0-12.0); NEUTROPHILS # (AUTO) 8.1 /CMM (1.8-8.9); NEUTROPHILS % (AUTO) 78.1 % (43.0-81.0); PLATELET COUNT (AUTO) 447 /CMM (150-450); RED BLOOD CELL COUNT(AUTO) 2.74 MIL/uL (4.0-5.2); WHITE BLOOD COUNT (AUTO) 10.4 K/uL (4.3-11.0)
--- NOTE | 2018-12-10 07:07 | NUR ---
RN NOTES PATIENT IS RESTING COMFORTABLY, ALL NEEDS ATTENDED, ABLE TO REST AND SLEEP AT INTERVALS. WILL ENDORSE TO AM NURSE FOR CONTINUITY OF CARE.
--- NOTE | 2018-12-10 07:10 | NUR ---
MS RN Notes Pt in bed sleeping comfortably but easily awoken without any signs of acute distress or SOB noted. Labs reviewed hgb 7.7 hct 24 with no active bleeding. Will continue to monitor.
[2018-12-10 07:32] LABS: CALCIUM, SERUM 7.9 mg/dL (8.5-10.1); CREATININE 0.7 mg/dL (0.6-1.3); MAGNESIUM 1.6 mg/dL (1.8-2.4)
[2018-12-10 08:00] VITALS: BP 115/70
[2018-12-10] MEDS: ENSURE ENLIVE CHOC 237 ML CAN PO SCH ×2 (08:15→17:17)
[2018-12-10] MEDS: DOCUSATE SODIUM 100 MG CAPSULE PO SCH ×2 (08:16→17:17)
[2018-12-10] MEDS: POLYETHYLENE GLYCOL 3350 17 GM POWD.PACK PO SCH (08:16)
[2018-12-10] MEDS: KETOROLAC TROMETHAMINE INJ 60 MG/2 ML VIAL IM SCH (08:16)
[2018-12-10] MEDS: FOLIC ACID 1 MG TABLET PO SCH (08:16)
[2018-12-10] MEDS: MULTIVITAMINS,THERAGRAN 1 UDTAB TABLET PO SCH (08:17)
[2018-12-10] MEDS: THIAMINE HCL 100 MG TABLET PO SCH (08:17)
[2018-12-10] MEDS: LACTOBACILLUS RHAMNOSUS GG 1 EACH CAP.SPRINK PO SCH ×2 (08:17→17:17)
[2018-12-10] MEDS: Magnesium 1GM/D5W 100ML PREMIX 100 ML IV SCH ×2 (08:57→10:02)
[2018-12-10] MEDS: HYDROGEL DRESSING 90 GM TUBE TP SCH (10:24)
[2018-12-10] MEDS: CEFTRIAXONE 1 G in IV D5W 50 ML IV SCH (14:00)
[2018-12-10 16:00] VITALS: BP 110/72
[2018-12-10] MEDS: HYDROCODONE/APAP 10/325MG 1 EA TABLET PO PRN ×2 (17:46→23:28)
--- NOTE | 2018-12-10 18:12 | NUR ---
MS RN Closing Notes PT aox4 and resting in bed. No s/s of SOB or distress at this time. PT has right wrist #22 and intact and patent. NORCO 10-325 given for pain management. Treatment done on sacral area. Safety precautions in place with bed in lowest lock position and x2 side rails up. Call light within reach. Will endorse to on coming nurse for further care.
--- NOTE | 2018-12-10 19:45 | NUR ---
RN NOTES RECEIVED PATIENT AWAKE IN BED, BREATHING EVEN AND UNLABORED, NO SIGNS OF ACUTE DISTRESS NOTED, ALL SAFETY MEASURES IN PLACED, COMPLAINTS OF MINIMAL DISCOMFORT, BOYFRIEND IS AT THE BEDSIDE, ALL NEEDS ATTENDED, KEPT COMFORTABLE, REPOSITIONED ACCORDINGLY, WILL CONTINUE TO MONITOR.
[2018-12-10 20:00] VITALS: BP 107/66
[2018-12-10 20:35] VITALS: BP 107/66
[2018-12-10] MEDS: ENOXAPARIN SODIUM 40 MG/0.4 ML DISP.SYRIN SQ SCH (21:52)
[2018-12-11] MEDS: VANCOMYCIN 1 GM in IV D5W 250 ML IV SCH ×3 (00:03→23:19)
--- NOTE | 2018-12-11 06:22 | NUR ---
RN NOTES ABLE TO SLEEP AT INTERVALS, KEPT CLEAN, DRY AND COMFORTABLE, REPOSITIONED ACCORDINGLY, NO SIGNS OF ACUTE DISTRESS NOTED, WILL ENDORSE TO AM NURSE FOR CONTINUITY OF CARE.
[2018-12-11 07:04] LABS: CALCIUM, SERUM 8.2 mg/dL (8.5-10.1); CREATININE 0.6 mg/dL (0.6-1.3); POTASSIUM 4.1 mmol/L (3.5-5.1)
--- NOTE | 2018-12-11 07:20 | NUR ---
MS RN Notes Pt in bed sleeping comfortably but easily awoken without any signs of acute distress or SOB noted. SL on right rrist patent. Respirations even and unlabored. Pt denies pain at this time. Will continue to monitor.
[2018-12-11 08:00] VITALS: BP 119/71
[2018-12-11] MEDS: FOLIC ACID 1 MG TABLET PO SCH (08:33)
[2018-12-11] MEDS: LACTOBACILLUS RHAMNOSUS GG 1 EACH CAP.SPRINK PO SCH ×2 (08:33→16:46)
[2018-12-11] MEDS: ENSURE ENLIVE CHOC 237 ML CAN PO SCH ×2 (08:33→16:47)
[2018-12-11] MEDS: MULTIVITAMINS,THERAGRAN 1 UDTAB TABLET PO SCH (08:33)
[2018-12-11] MEDS: THIAMINE HCL 100 MG TABLET PO SCH (08:34)
[2018-12-11] MEDS: DOCUSATE SODIUM 100 MG CAPSULE PO SCH ×2 (08:38→16:48)
[2018-12-11] MEDS: KETOROLAC TROMETHAMINE INJ 60 MG/2 ML VIAL IM SCH (08:38)
[2018-12-11] MEDS: POLYETHYLENE GLYCOL 3350 17 GM POWD.PACK PO SCH (08:39)
[2018-12-11] MEDS: HYDROGEL DRESSING 90 GM TUBE TP SCH (09:35)
--- NOTE | 2018-12-11 12:22 | NUR ---
AZAM and lead case manager Demi Contreras met with pt. bedside to inquire where pt. will be going once discharged from [facility]. Pt. states she will be going with her boyfriend to the following address [address] [place] [address]. Pt. was happy she will be going home tomorrow. Pt. plans to move to [place] with her boyfriend in the near future. Pt. states she finally spoke to her father in [place] after a very long time.
[2018-12-11] MEDS: CEFTRIAXONE 1 G in IV D5W 50 ML IV SCH (14:43)
[2018-12-11 16:00] VITALS: BP 111/65
[2018-12-11] MEDS: HYDROCODONE/APAP 10/325MG 1 EA TABLET PO PRN ×2 (17:43→23:19)
--- NOTE | 2018-12-11 18:45 | NUR ---
MS RN Closing Notes PT aox4 and resting in bed watching TV. No s/s of SOB or distress at this time. PT has right wrist #22 and intact and patent. NORCO 10-325 given for pain management. Treatment done on sacral area. Safety precautions in place with bed in lowest lock position and x2 side rails up. Pt scheduled right knee arthroscopy washout tomorrow, NPO after midnight. Pt is able to ambulate with assistance and walker to bathroom. Call light within reach. Will endorse to on coming nurse for further care.
--- NOTE | 2018-12-11 19:30 | NUR ---
RECEIVED PATIENT IN BED AWAKE, AO X 3, ABLE TO MAKE NEEDS KNOWN. NO ACUTE DISTRESS NOTED. MONITORED FOR PAIN ON RIGHT LEG. IV SITE PATENT, INTACT; FLUSHED. SAFETY REMINDERS GIVEN. ON LOW BED WITH BILATERAL UPPER SIDE RAILS UP. CALL [place] WITHIN EASY REACH. WILL CONTINUE TO MONITOR.
[2018-12-11 20:00] VITALS: BP 111/72
[2018-12-11] MEDS: ENOXAPARIN SODIUM 40 MG/0.4 ML DISP.SYRIN SQ SCH (21:00)
[2018-12-12] VITALS (14 sets, daily range): BP systolic 91–112; BP diastolic 48–71
--- NOTE | 2018-12-12 06:10 | NUR ---
PATIENT ASLEEP, EASILY AROUSABLE. RESPIRATIONS EVEN. NO SIGNS OF PAIN NOTED. NPO SINCE MIDNIGHT. DUE MED GIVEN WITH NO ASE NOTED. NEEDS ATTENDED. ASSISTED TO BSC. KEPT CLEAN, DRY, AND COMFORTABLE. SAFETY PRECAUTIONS AND COMFORT MEASURES IN PLACE. WILL GIVE REPORT TO DAY SHIFT FOR CONTINUITY OF CARE.
[2018-12-12] MEDS ORDERED: ANESTHESIA TRAY IN PYXIS 1 EA TRAY MC ONE (06:32)
[2018-12-12] MEDS ORDERED: BACITRACIN 50000 UNITS/VIAL ONE (06:32)
[2018-12-12] MEDS ORDERED: FENTANYL PF 100MCG/2ML AMPUL ONE ×2 (06:44→08:45)
[2018-12-12] MEDS ORDERED: MIDAZOLAM HCL 2 MG/2ML VIAL ONE (06:45)
[2018-12-12] MEDS ORDERED: ROCURONIUM BROMIDE 50 MG/5 ML ONE (06:45)
[2018-12-12] MEDS ORDERED: POLYMYXIN B SULFATE 500,000 UNITS VIAL IJ ONE (07:11)
[2018-12-12] MEDS: ENSURE ENLIVE CHOC 237 ML CAN PO SCH ×2 (08:00→17:00)
--- NOTE | 2018-12-12 08:00 | NUR ---
MS RN NOTES PATIENT IN OR FOR RIGHT KNEE WASH OUT.
[2018-12-12] MEDS ORDERED: METOCLOPRAMIDE HCL 10 MG/2 ML VIAL ONE (08:38)
[2018-12-12] MEDS ORDERED: DIAZEPAM 5 MG TABLET PO ONE (08:47)
[2018-12-12] MEDS: POLYETHYLENE GLYCOL 3350 17 GM POWD.PACK PO SCH ×2 (09:00→09:36)
--- NOTE | 2018-12-12 09:30 | NUR ---
MS RN NOTES PATIENT RETURNED FROM OR IN STABLE CONDITION WILL CONTINUE TO MONITOR.
[2018-12-12] MEDS: DOCUSATE SODIUM 100 MG CAPSULE PO SCH ×2 (09:36→17:00)
[2018-12-12] MEDS: MULTIVITAMINS,THERAGRAN 1 UDTAB TABLET PO SCH (09:36)
[2018-12-12] MEDS: THIAMINE HCL 100 MG TABLET PO SCH (09:36)
[2018-12-12] MEDS: FOLIC ACID 1 MG TABLET PO SCH (09:36)
[2018-12-12] MEDS: LACTOBACILLUS RHAMNOSUS GG 1 EACH CAP.SPRINK PO SCH ×2 (09:36→18:09)
[2018-12-12] MEDS: HYDROGEL DRESSING 90 GM TUBE TP SCH (09:37)
[2018-12-12 10:55] LABS: BASOPHILS # (AUTO) 0.1 /CMM (0.0-0.2); BASOPHILS % (AUTO) 0.3 % (0.0-2.0); EOSINOPHILS % (AUTO) 0.8 % (0.0-6.0); HEMATOCRIT 24 % (33-45); HEMOGLOBIN 7.9 g/dL (11.5-14.8); LYMPHOCYTES # (AUTO) 1.3 /CMM (0.8-4.8); LYMPHOCYTES % (AUTO) 7.8 % (20.0-44.0); MEAN CORPUSCULAR HGB CONC 33 g/dl (31.0-36.0); MEAN CORPUSCULAR VOLUME 87 fL (82-100); MONOCYTES # (AUTO) 0.4 /CMM (0.1-1.30); MONOCYTES % (AUTO) 2.2 % (2.0-12.0); NEUTROPHILS # (AUTO) 14.6 /CMM (1.8-8.9); NEUTROPHILS % (AUTO) 88.9 % (43.0-81.0); PLATELET COUNT (AUTO) 484 /CMM (150-450); RED BLOOD CELL COUNT(AUTO) 2.79 MIL/uL (4.0-5.2); WHITE BLOOD COUNT (AUTO) 16.5 K/uL (4.3-11.0)
[2018-12-12 11:03] LABS: CALCIUM, SERUM 8.3 mg/dL (8.5-10.1); CREATININE 0.6 mg/dL (0.6-1.3); MAGNESIUM 1.7 mg/dL (1.8-2.4); POTASSIUM 4.2 mmol/L (3.5-5.1)
[2018-12-12] MEDS: HYDROCODONE/APAP 10/325MG 1 EA TABLET PO PRN ×2 (11:09→18:40)
[2018-12-12] MEDS: VANCOMYCIN 1 GM in IV D5W 250 ML IV SCH ×2 (12:23→23:15)
[2018-12-12] MEDS: CEFTRIAXONE 1 G in IV D5W 50 ML IV SCH (15:18)
--- NOTE | 2018-12-12 18:15 | NUR ---
MS RN NOTES PATIENT IN BED RESTING NO SOB OR ACUTE DISTRESS NOTED. PATIENT ALERT, ORIENTED X3, S/P RIGHT KNEE WASH OUT. PAIN CONTROLLED WITH MEDICATIONS PATIENT REPOSITIONED EVERY 2 HOURS. NO ACUTE CHANGES NOTED. WILL ENDORSE CARE TO PM SHIFT.
--- NOTE | 2018-12-12 19:15 | NUR ---
MS ZAMARRIPA OPENING NOTES: RECEIVED PT ON ROOM AIR AND IS TOLERATING WELL. PT IS AWAKE AND APPEARS TO BE IN MILD DISTRESS AND IS EMOTIONAL. PT RECEIVED NORCO 10 NOT TOO LONG AGO. PT HAS IV ON R FOREARM #20G AND IS PATENT AND INTACT. CURRENTLY H/L. IMMOBILIZER ON R KNEE IS IN PLACE. PT IS S/O R KNEE ARTHROSCOPY WASHOUT. BED KEPT IN LOW, LOCKED POSITION, AND SIDE RAILS X 2UP. WILL CONTINUE TO MONITOR PT. Addendum: 12/13/18 at 0019 by BALDOMERO HOPKINS RN PT ALSO HAS DRAIN COMING FROM R KNEE. Addendum: 12/13/18 at 0447 by BALDOMERO HOPKINS RN INCENTIVE SPIROMETER AT BEDSIDE. ENCOURAGED PT TO USE IT WHEN AWAKE.
[2018-12-12] MEDS: HYDROCODONE/APAP 5/325MG 1 EACH TABLET PO PRN (21:56)
--- NOTE | 2018-12-12 21:58 | NUR ---
MS RN NOTES: PT COMPLAINING OF 7/10 R KNEE AND GENERALIZED PAIN. PT WAS ADMINISTERED NORCO 5 PO. WILL CONTINUE TO MONITOR.
[2018-12-13 02:04] VITALS: BP 110/60
[2018-12-13] MEDS: HYDROCODONE/APAP 10/325MG 1 EA TABLET PO PRN ×3 (02:05→22:56)
--- NOTE | 2018-12-13 02:07 | NUR ---
MS RN NOTES: PT COMPLAINING OF 9/10 R KNEE, SACRAL, GENERALIZED PAIN. PT WAS ADMINISTERED NORCO 10 PO. WILL CONTINUE TO MONITOR.
[2018-12-13] MEDS: HYDROCODONE/APAP 5/325MG 1 EACH TABLET PO PRN ×3 (05:30→19:46)
--- NOTE | 2018-12-13 05:31 | NUR ---
MS RN NOTES: PT CRYING THAT HER R KNEE/LEG IS IN 7/10 PAIN. PT WAS ADMINISTERED NORCO 5 PO. WILL CONTINUE TO MONITOR.
[2018-12-13 06:28] LABS: BASOPHILS % (AUTO) 0.5 % (0.0-2.0); EOSINOPHILS % (AUTO) 4.7 % (0.0-6.0); HEMATOCRIT 22 % (33-45); HEMOGLOBIN 7.3 g/dL (11.5-14.8); LYMPHOCYTES # (AUTO) 1.7 /CMM (0.8-4.8); LYMPHOCYTES % (AUTO) 27.4 % (20.0-44.0); MEAN CORPUSCULAR HGB CONC 33 g/dl (31.0-36.0); MEAN CORPUSCULAR VOLUME 87 fL (82-100); MONOCYTES # (AUTO) 0.3 /CMM (0.1-1.30); NEUTROPHILS % (AUTO) 62.4 % (43.0-81.0); PLATELET COUNT (AUTO) 489 /CMM (150-450); RED BLOOD CELL COUNT(AUTO) 2.53 MIL/uL (4.0-5.2); WHITE BLOOD COUNT (AUTO) 6.4 K/uL (4.3-11.0)
--- NOTE | 2018-12-13 06:37 | NUR ---
MS RN CLOSING NOTES: ALL NEEDS WERE ATTENDED AND ANTICIPATED FOR. PT ASLEEP AT THIS TIME AND RESTING IN BED COMFORTABLY. IV REMAINS INTACT AND IS CURRENTLY H/L. PT HAS KNEE IMMOBILIZER ON R KNEE WITH DRAIN PRESENT. PT ON ROOM AIR AND TOLERATING WELL. NO SOB NOTED. NO S/S OF DISTRESS. INCENTIVE SPIROMETER AT BEDSIDE. BED KEPT IN LOW, LOCKED POSITION, AND SIDE RAILS X 2UP. WILL ENDORSE TO AM NURSE FOR RIAZ.
[2018-12-13 06:41] LABS: CALCIUM, SERUM 8.6 mg/dL (8.5-10.1); CREATININE 0.7 mg/dL (0.6-1.3); POTASSIUM 4.3 mmol/L (3.5-5.1)
--- NOTE | 2018-12-13 07:08 | NUR ---
RN NOTES PATIENT A/OX4, BREATHING EVEN AND UNLABORED, NO SOB NOTED, DENIES PAIN AT THIS TIME, DRAIN ON RIGHT KNEE, INTACT AND DRAINING. IMMOBILIZER IN PLACED, KEPT RLE ELEVATED, KEPT PATIENT COMFORTABLE, NEEDS ATTENDED, CALL LIGHT WITHIN REACH, WILL CONTINUE TO MONITOR.
[2018-12-13 08:00] VITALS: BP 102/63
[2018-12-13] MEDS: THIAMINE HCL 100 MG TABLET PO SCH (08:19)
[2018-12-13] MEDS: DOCUSATE SODIUM 100 MG CAPSULE PO SCH ×2 (08:19→16:50)
[2018-12-13] MEDS: FOLIC ACID 1 MG TABLET PO SCH (08:19)
[2018-12-13] MEDS: LACTOBACILLUS RHAMNOSUS GG 1 EACH CAP.SPRINK PO SCH ×2 (08:19→16:50)
[2018-12-13] MEDS: POLYETHYLENE GLYCOL 3350 17 GM POWD.PACK PO SCH (08:19)
[2018-12-13] MEDS: ENSURE ENLIVE CHOC 237 ML CAN PO SCH ×2 (08:19→16:51)
[2018-12-13] MEDS: MULTIVITAMINS,THERAGRAN 1 UDTAB TABLET PO SCH (08:19)
[2018-12-13] MEDS: HYDROGEL DRESSING 90 GM TUBE TP SCH (08:20)
[2018-12-13] MEDS: ENOXAPARIN SODIUM 40 MG/0.4 ML DISP.SYRIN SQ SCH (09:55)
[2018-12-13] MEDS: VANCOMYCIN 1 GM in IV D5W 250 ML IV SCH (12:42)
[2018-12-13] MEDS: CEFTRIAXONE 1 G in IV D5W 50 ML IV SCH (14:05)
--- NOTE | 2018-12-13 14:42 | NUR ---
RN NOTES ATTEMPTED WOUND TREATMENT ON THE RIGHT KNEE. PATIENT GIVEN NORCO FOR PAIN, BUT PATIENT STILL SCREAMED, AND REFUSED TO HAVE THE INNER PACKING CHANGED. EXPLAINED RISKS AND BENEFITS BUT PATIENT STILL REFUSED. INFORMED PATIENT WILL TRY AGAIN AT A LATER TIME. JUAQUIN ISSA NP AND JOANN SYED FROM [facility] MADE AWARE.
[2018-12-13] MEDS ORDERED: HYDROMORPHONE 1 MG/1 ML DISP.SYRIN IV ONE (15:30)
[2018-12-13 16:00] VITALS: BP 104/61
--- NOTE | 2018-12-13 16:06 | NUR ---
RN NOTES WOUND TREATMENT RENDERED. PATIENT TOLERATED PROCEDURE. RLE COVERED WITH ROQUE BANDAGE.
--- NOTE | 2018-12-13 17:51 | NUR ---
RN NOTES NO OUTPUT ON RIGHT KNEE DRAIN.
--- NOTE | 2018-12-13 18:40 | NUR ---
RN NOTES PATIENT SEEN BY MARQUEZ SYED, REPORTED NO OUTPUT ON RIGHT KNEE DRAIN, MARQUEZ EXAMINED PATIENT'S RIGHT KNEE, AND REMOVED THE DRAIN. PATIENT TOLERATED PROCEDURE WELL. INFORMED OF WOUND TREATMENT AND WHEN PACKING WAS CHANGED, THERE WERE DISCHARGE COMING OUT OF THE WOUND ITSELF. NO NEW ORDER AT THIS TIME. PATIENT'S A/OX4, NAD, RAC G20 ON TKO, NEEDS ATTENDED AND MET, CALL LIGHT WITHIN REACH, WILL ENDORSE TO SHIFT SUPERVISOR FILM PROCESSING FOR RIAZ.
--- NOTE | 2018-12-13 19:30 | NUR ---
RN NOTES RECEIVED PT. AWAKE ON BED, A/OX4, RIGHT LOWER EXTREMITY DRESSING DRY AND INTACT, IMMOBILIZER IN PLACE, COMPLAINED OF PAIN ON HER RIGHT LEG- I WILL CHECK IF THE PAIN MEDICATION IS DUE , CALL LIGHT WITHIN REACH, [id number], CONTINUE TO MONITOR
--- NOTE | 2018-12-13 19:48 | NUR ---
RN NOTES COMPLAINED OF RIGHT LEG PAOIN NORCO 5/325MG PO GIVEN ORDERED V/S STABLE
[2018-12-13 20:00] VITALS: BP 99/57
--- NOTE | 2018-12-13 22:59 | NUR ---
RN NOTES COMPLAINED OF TERRIBLE PAIN ON HER RIGHT KNEE- NORCO 10/325MG PO GIVEN ORDERED, V/S STABLE
[2018-12-14] MEDS: VANCOMYCIN 1 GM in IV D5W 250 ML IV SCH ×3 (00:03→23:32)
[2018-12-14] MEDS: HYDROCODONE/APAP 5/325MG 1 EACH TABLET PO PRN ×2 (03:52→21:48)
--- NOTE | 2018-12-14 03:54 | NUR ---
RN NOTES COMPLAINED OF RIGHT KNEE PAIN- NORCO 5/325MG PO GIVEN ORDERED, V/S STABLE
--- NOTE | 2018-12-14 06:34 | NUR ---
RN NOTES SLEEPING BUT AROUSABLE, NO PAIN NOTED, NO SOB, CALL LIGHT WITHIN REACH, [id number], PT. NEEDS ATTENDED
--- NOTE | 2018-12-14 07:10 | NUR ---
RN NOTES PATIENT ASLEEP, EASILY AWAKEN, NAD, DENIES PAIN AT THIS TIME. KEPT COMFORTABLE, NEEDS ATTENDED, CALL LIGHT WITHIN REACH, WILL CONTINUE TO MONITOR.
[2018-12-14 07:55] LABS: BASOPHILS # (AUTO) 0.1 /CMM (0.0-0.2); BASOPHILS % (AUTO) 0.8 % (0.0-2.0); EOSINOPHILS % (AUTO) 3.8 % (0.0-6.0); HEMATOCRIT 23 % (33-45); HEMOGLOBIN 7.7 g/dL (11.5-14.8); LYMPHOCYTES # (AUTO) 1.5 /CMM (0.8-4.8); LYMPHOCYTES % (AUTO) 19.5 % (20.0-44.0); MEAN CORPUSCULAR HGB CONC 33 g/dl (31.0-36.0); MEAN CORPUSCULAR VOLUME 87 fL (82-100); MONOCYTES # (AUTO) 0.3 /CMM (0.1-1.30); MONOCYTES % (AUTO) 3.7 % (2.0-12.0); NEUTROPHILS # (AUTO) 5.5 /CMM (1.8-8.9); NEUTROPHILS % (AUTO) 72.2 % (43.0-81.0); PLATELET COUNT (AUTO) 569 /CMM (150-450); RED BLOOD CELL COUNT(AUTO) 2.67 MIL/uL (4.0-5.2); WHITE BLOOD COUNT (AUTO) 7.6 K/uL (4.3-11.0)
[2018-12-14 08:00] VITALS: BP 102/83
[2018-12-14 08:03] LABS: CALCIUM, SERUM 9.1 mg/dL (8.5-10.1); CREATININE 0.6 mg/dL (0.6-1.3); POTASSIUM 4.6 mmol/L (3.5-5.1)
[2018-12-14] MEDS: DOCUSATE SODIUM 100 MG CAPSULE PO SCH ×2 (08:35→17:00)
[2018-12-14] MEDS: THIAMINE HCL 100 MG TABLET PO SCH (08:35)
[2018-12-14] MEDS: ENSURE ENLIVE CHOC 237 ML CAN PO SCH ×2 (08:35→17:13)
[2018-12-14] MEDS: POLYETHYLENE GLYCOL 3350 17 GM POWD.PACK PO SCH (08:35)
[2018-12-14] MEDS: MULTIVITAMINS,THERAGRAN 1 UDTAB TABLET PO SCH (08:35)
[2018-12-14] MEDS: FOLIC ACID 1 MG TABLET PO SCH (08:35)
[2018-12-14] MEDS: LACTOBACILLUS RHAMNOSUS GG 1 EACH CAP.SPRINK PO SCH ×2 (08:35→17:13)
[2018-12-14] MEDS: HYDROGEL DRESSING 90 GM TUBE TP SCH (08:36)
[2018-12-14] MEDS: ENOXAPARIN SODIUM 40 MG/0.4 ML DISP.SYRIN SQ SCH (08:37)
[2018-12-14] MEDS: HYDROCODONE/APAP 10/325MG 1 EA TABLET PO PRN ×2 (09:28→15:01)
[2018-12-14 16:00] VITALS: BP 99/64
--- NOTE | 2018-12-14 18:26 | NUR ---
RN NOTES WOUND TREATMENT RENDERED, ASSISTED WITH TURNING AND REPOSITIONING. PATIENT DENIES PAIN AT THIS TIME, NEEDS ATTENDED AND MET, CALL LIGHT WITHIN REACH, WILL ENDORSE TO EMBEDDED HARDWARE ENGINEER FOR RIAZ.
--- NOTE | 2018-12-14 19:30 | NUR ---
RN NOTES RECEIVED PT. AWAKE ON BED, FRIENDS AT BEDSIDE, IMMOBILZER ON THE RIGHT KNEE IN PLACE, DENIES PAIN AT THIS TIME, NO SOB, CALL LIGHT WITHIN REACH, [id number], CONTINUE TO MONITOR
[2018-12-14 19:50] VITALS: BP 105/68
--- NOTE | 2018-12-14 21:53 | NUR ---
RN NOTES COMPLAINED OF RIGHT KNEE PAIN- NOROC 5/325MG PO GIVEN ORDERED, V/S STABLE
--- NOTE | 2018-12-14 22:00 | NUR ---
RN NOTES PT. REFUSED TO HAVE HER RIGHT KNEE DRESSING OPENED SO I CAN TAKE PHOTO. PT. STATED SHE STATED THAT THEY ALREADY OPENED THE DRESSING THIS MORNING. "SHE'S COMFORTABLE RIGHT NOW AND DOESNT WANT TO BE TOUCH.
[2018-12-15] MEDS: HYDROCODONE/APAP 5/325MG 1 EACH TABLET PO PRN (02:16)
--- NOTE | 2018-12-15 02:20 | NUR ---
RN NOTES COMPLAINED OF RIGHT KNEE PAIN- NORCO 5/325MG PO GIVEN ORDERED, V/S STABLE
[2018-12-15 06:28] LABS: BASOPHILS # (AUTO) 0.1 /CMM (0.0-0.2); BASOPHILS % (AUTO) 0.7 % (0.0-2.0); EOSINOPHILS % (AUTO) 3.6 % (0.0-6.0); HEMATOCRIT 24 % (33-45); LYMPHOCYTES # (AUTO) 1.5 /CMM (0.8-4.8); LYMPHOCYTES % (AUTO) 19.2 % (20.0-44.0); MEAN CORPUSCULAR HGB CONC 33 g/dl (31.0-36.0); MEAN CORPUSCULAR VOLUME 88 fL (82-100); MONOCYTES # (AUTO) 0.3 /CMM (0.1-1.30); MONOCYTES % (AUTO) 4.2 % (2.0-12.0); NEUTROPHILS # (AUTO) 5.7 /CMM (1.8-8.9); NEUTROPHILS % (AUTO) 72.3 % (43.0-81.0); PLATELET COUNT (AUTO) 661 /CMM (150-450); RED BLOOD CELL COUNT(AUTO) 2.76 MIL/uL (4.0-5.2); WHITE BLOOD COUNT (AUTO) 7.9 K/uL (4.3-11.0)
--- NOTE | 2018-12-15 06:40 | NUR ---
RN NOTES PT. STILL REFUSING PHOTO .SHE STATED "LATER"... MORNING CARE RENDERED, CALL LIGHT WITHIN REACH, [id number], PT. NEEDS ATTENDED
[2018-12-15 06:42] LABS: CALCIUM, SERUM 9.2 mg/dL (8.5-10.1); CREATININE 0.6 mg/dL (0.6-1.3); POTASSIUM 4.7 mmol/L (3.5-5.1)
--- NOTE | 2018-12-15 07:05 | NUR ---
MSRN. PT RECEIVED A&0X4, TOLERATING ROOM AIR WITHOUT DISTRESS, PT REPORTS MODERATE PAIN TO RIGHT KNEE. PT WITH IVC AT L HAND SALINE FLUSH PATENT. PT WITH KNEE IMMOBILIZER IN.SITU AND HEELS OFFLOADED. DRESSING CLEAN AND INTACT. PT BED IN LOWEST LOCKED POSITION WITH HANDRIALSX2 AND CALL [place] WITHIN REACH. PT BRIEFED ON POC AND IS WITHOUT CONCERN OR COMPLAINT, WILL CONTINUE POC.
[2018-12-15 08:00] VITALS: BP 111/66
[2018-12-15] MEDS: POLYETHYLENE GLYCOL 3350 17 GM POWD.PACK PO SCH (08:09)
[2018-12-15] MEDS: DOCUSATE SODIUM 100 MG CAPSULE PO SCH (08:09)
[2018-12-15] MEDS: MULTIVITAMINS,THERAGRAN 1 UDTAB TABLET PO SCH (08:10)
[2018-12-15] MEDS: LACTOBACILLUS RHAMNOSUS GG 1 EACH CAP.SPRINK PO SCH (08:10)
[2018-12-15] MEDS: THIAMINE HCL 100 MG TABLET PO SCH (08:10)
[2018-12-15] MEDS: FOLIC ACID 1 MG TABLET PO SCH (08:10)
[2018-12-15] MEDS: ENOXAPARIN SODIUM 40 MG/0.4 ML DISP.SYRIN SQ SCH (08:11)
[2018-12-15] MEDS: HYDROCODONE/APAP 10/325MG 1 EA TABLET PO PRN ×2 (08:12→14:27)
[2018-12-15] MEDS: ENSURE ENLIVE CHOC 237 ML CAN PO SCH (08:19)
[2018-12-15] MEDS: VANCOMYCIN 1 GM in IV D5W 250 ML IV SCH (12:00)
--- NOTE | 2018-12-15 12:05 | NUR ---
PT REFUSING 1200 IVAB R/T TO PREPARING TO LEAVE.
[2018-12-15] MEDS: HYDROGEL DRESSING 90 GM TUBE TP SCH (13:00)
--- NOTE | 2018-12-15 14:00 | NUR ---
PT BF ARRIVED, BECAME VERY AGITATED AND SHOUTING AT STAFF. BF VOLUNTARILY LEFT TO WAIT TO LOBBY.
--- NOTE | 2018-12-15 15:00 | NUR ---
PT SPOKEN TO CASE MANAGEMENT AND MACHINE HOSTLER THIS AM R/T NEED TO WAIT FOR PO AB. DESPITE THIS, PT CHOOSING TO LEAVE AND WILL COME BACK FOR MEDICATIONS.
--- NOTE | 2018-12-15 15:27 | NUR ---
MSRN. PT PREPAPRED FOR D/C PER BATCH WEIGHER. PT TOLERATING ROOM AIR AND REPORTS ADEQUATE PAIN MANAGEMENT AT THIS TIME. IVC REMOVED AND NAD. WOUND CARE COMPLETES PER RX AND SKIN PHOTOS UPDATED. PT WITH KNEE BRACE IN.SITU. PT WITH ALL BELONGINGS AND DOCUMENT SIGNED. PT BRIEFED ON [facility] D/C PACKET, WOUND CARE, LOCAL RESOURCES, SCRIPT AND VERBALIZING UNDERSTANDING, RESOURCES AND INTENT TO FOLLOW POC. PT STATES WILL GO TO [facility] FOR [facility]. PT LEFT WITH PT WHEELCHAIR WITH BUILDING CONSTRUCTION ESTIMATOR ESCORT.
--- NOTE | 2018-12-15 15:35 | NUR ---
PT LEFT SOME BELONGINGS, CALLED PHONE WITH NO ANSWER.
--- NOTE | 2018-12-15 16:56 | NUR ---
TRIED CALLINGX3 PT NUMBER AND PERSON TO NOTIFY NUMBER, NO ANSER. MESSAGE ON ANSWERING MACHINE FOR PROVIDED NUMBER DOES NOT MATCH PT NAME. NO MESSAGE LEFT.
== END 2018-12-15 15:00 | disposition home or self-care (01) | DRG 710 ==
LOC: ER 18:24 → TELE 12-04 01:02 → MED 12-05 08:54 → TELE 12-05 14:21 → MED 12-06 08:35 → MEDSG2 12-11 20:18
PROVIDERS: ADMIT Internal Medicine; ATTEND Nurse Practitioner Acute Care
PROC: 30233N1 Transfusion of Nonautologous Red Blood Cells into Peripheral Vein, Percutaneous Approach (ICD-10-PCS; principal; 2018-12-05)
PROC: 0SBC4ZZ Excision of Right Knee Joint, Percutaneous Endoscopic Approach (ICD-10-PCS; 2018-12-12)
DX: A41.9 Sepsis, unspecified organism (principal); N17.0 Acute kidney failure with tubular necrosis; M00.061 Staphylococcal arthritis, right knee; E44.0 Moderate protein-calorie malnutrition; E83.42 Hypomagnesemia; D68.9 Coagulation defect, unspecified; E87.1 Hypo-osmolality and hyponatremia; F11.20 Opioid dependence, uncomplicated; L03.115 Cellulitis of right lower limb; B96.20 Unspecified Escherichia coli [E. coli] as the cause of diseases classified elsewhere; N39.0 Urinary tract infection, site not specified; E86.9 Volume depletion, unspecified; Z87.891 Personal history of nicotine dependence; Z59.0 Homelessness; D63.8 Anemia in other chronic diseases classified elsewhere; N18.9 Chronic kidney disease, unspecified; D47.3 Essential (hemorrhagic) thrombocythemia; B19.20 Unspecified viral hepatitis C without hepatic coma; M25.461 Effusion, right knee; Z86.718 Personal history of other venous thrombosis and embolism; R91.1 Solitary pulmonary nodule; Z68.24 Body mass index [BMI] 24.0-24.9, adult; M70.41 Prepatellar bursitis, right knee; Z79.01 Long term (current) use of anticoagulants; Z91.19 Patient's noncompliance with other medical treatment and regimen; F15.10 Other stimulant abuse, uncomplicated; B95.7 Other staphylococcus as the cause of diseases classified elsewhere
CPT/HCPCS: 36415; 71045-TC; 73564-TC; 73700-TC; 80048-TC; 80061-TC; 80074; 80076-TC; 80202-TC; 80305; 81000-TC; 83605-TC; 83735-TC; 84100-TC; 84443-TC; 84484-TC; 84703-TC; 85025-TC; 85652-TC; 85730-TC; 86140-TC; 86850-TC; 86921-TC; 87040-TC; 87070-TC; 87081-TC; 87086-TC; 87186-TC; 88304-TC; 88311-TC; 93307-TC; 93926-TC; 93971-TC; 94799-TC; A4217; A6248; A6253; A6402; A6403; A6407; G0378; J0696; J1170; J1650; J1885; J2250; J2405; J2543; J2704; J2710; J2765; J3010; J3370; J3475; J3490; J7030; J7050; J7060; P9016-BL

== ENCOUNTER 2018-12-18 13:27 | Emergency (ER) | payer OTHER ==
[~2018-12-18] VITALS: Ht 167.6 cm; Wt 59.0 kg
[~2018-12-18 13:27] MED LIST: IBUP-1955 PO; RIVA10TA PO
--- NOTE | 2018-12-18 13:58 | NUR ---
PT PRESENTED TO THE ER WITH A C/O RT KNEE PAIN, EDEMA S/P SX ON SATURDAY. PT HAS PACKING NOTED ON KNEE. PT STATED THAT SHE WAS TOLD TO "PULL OUT THE PACKING" AND PT STATED THAT SHE WAS NOT ABLE TO DO IT.
--- NOTE | 2018-12-18 14:00 | NUR ---
PT STATED THAT SHE HAD SX HERE LAST SATURDAY AND DR. FENTON WAS HER SURGEON.
--- NOTE | 2018-12-18 14:10 | NUR ---
Roberto HENRY PA-C IS AT THE BEDSIDE
--- NOTE | 2018-12-18 14:26 | NUR ---
SPOKE WITH BERNABE FROM CASE MANAGEMENT FOR ASSISTANCE FOR PROPER CARE OF INFECTED KNEE
--- NOTE | 2018-12-18 15:03 | NUR ---
BERNABE, TRACING LATHE SET UP OPERATOR, SPOKE TO Roberto HENRY PA-C RE: PT'S F/U WITH WOUND CARE.
--- NOTE | 2018-12-18 16:15 | NUR ---
BERNABE, ASSISTANT VICE PRESIDENT, IS AT THE BEDSIDE SPEAKING TO THE PT RE: HOME HEALTH.
--- NOTE | 2018-12-18 16:16 | NUR ---
PT TO F/U WITH HOME HEALTH. PT REC'D ALL INFORMATION RE: HOME HEALTH AND PHARMACY TO DELIVER MEDICATION. Patient discharged to home in stable condition. Written and verbal after care instructions given. Patient verbalizes understanding of instruction AND RX. PT LEFT VIA WC. PT'S BOYFRIEND, JUSTIN, IS AT THE BEDSIDE AND IS TAKING THE PT HOME. VSS. NAD NOTED. PT'S RLE IS IN A KNEE IMMOBILIZER.
[2018-12-18 16:18] VITALS: BP 120/78
== END 2018-12-18 16:16 | disposition home or self-care (01) ==
LOC: ER 13:30
DX: M00.9 Pyogenic arthritis, unspecified (principal); F19.10 Other psychoactive substance abuse, uncomplicated; F11.90 Opioid use, unspecified, uncomplicated; F17.200 Nicotine dependence, unspecified, uncomplicated; Z48.01 Encounter for change or removal of surgical wound dressing; Z98.890 Other specified postprocedural states; Z90.89 Acquired absence of other organs; Z59.0 Homelessness
CPT/HCPCS: 87070; 99283; 99406; A4606; A6403 ×2; A6407; Z7610